=== PATIENT | female | born 1945 | race African-American/Black ===

== ENCOUNTER 2019-04-15 08:01 | Outpatient (CLI) | payer OTHER ==
[~2019-04-15 08:01] MED LIST: LISINOPRIL5 MG
== END 2019-04-15 08:05 | disposition home or self-care (01) ==
LOC: SONOGRAMA 08:01
DX: E04.2 Nontoxic multinodular goiter (principal)

== ENCOUNTER 2022-10-10 19:19 | Inpatient (IN) | payer OTHER ==
[~2022-10-10] VITALS: Ht 160 cm; Wt 104.3 kg
[~2022-10-10 19:19] MED LIST changes: +CELEBREX200MG PO; +DICLOFENAC SOD100 MG PO; +FOSAMAX70 MG PO; +ZANAFLEX2 MG PO
[2022-10-10] MEDS ORDERED: LEVOTHYROXINE25 MCG (20:17)
[2022-10-13] MEDS ORDERED: PANTOPRAZOLE SO40 MG PO (14:33)
[2022-10-13] MEDS ORDERED: LEVSIN/SL0.125 MG SL (14:39)
== END 2022-10-13 15:04 | disposition home or self-care (01) | DRG 343 ==
LOC: ER 19:19 → MEDJ 10-11 00:56
PROVIDERS: Surgery; ADMIT Internal Medicine; ATTEND Internal Medicine
PROC: 0WQF4ZZ Repair Abdominal Wall, Percutaneous Endoscopic Approach (ICD-10-PCS; 2022-10-11)
PROC: BW21ZZZ Computerized Tomography (CT Scan) of Abdomen and Pelvis (ICD-10-PCS; 2022-10-11)
PROC: 0DTJ4ZZ Resection of Appendix, Percutaneous Endoscopic Approach (ICD-10-PCS; principal; 2022-10-11 10:00)
DX: K35.890 Other acute appendicitis without perforation or gangrene (principal); K43.9 Ventral hernia without obstruction or gangrene; Z20.822 Contact with and (suspected) exposure to COVID-19

== ENCOUNTER 2023-03-24 09:44 | Emergency (ER) | payer OTHER ==
[~2023-03-24] VITALS: Ht 157.5 cm; Wt 85.7 kg
[~2023-03-24 09:44] MED LIST changes: +LEVOTHYROXINE25 MCG; +LEVSIN/SL0.125 MG SL; +PANTOPRAZOLE SO40 MG PO
== END 2023-03-24 11:31 | disposition home or self-care (01) ==
LOC: ER 09:44
DX: R07.89 Other chest pain (principal); W18.39XA Other fall on same level, initial encounter; Y93.89 Activity, other specified; Y92.013 Bedroom of single-family (private) house as the place of occurrence of the external cause

== ENCOUNTER 2023-04-17 09:04 | Outpatient (CLI) | payer OTHER | END 2023-04-17 09:06 | disposition home or self-care (01) | LOC: SONOGRAMA 09:04 | PROVIDERS: ATTEND Pathology Anatomic Pathology & Clinical Pathology | DX: D34 Benign neoplasm of thyroid gland (principal); D44.0 Neoplasm of uncertain behavior of thyroid gland; E07.9 Disorder of thyroid, unspecified; E04.9 Nontoxic goiter, unspecified ==

== ENCOUNTER 2024-01-29 01:38 | Emergency (ER) | payer OTHER ==
[~2024-01-29] VITALS: Ht 157.5 cm; Wt 82.6 kg
[2024-01-29] MEDS ORDERED: NORVASC5 MG PO (01:43)
[2024-01-29] MEDS ORDERED: KETOROLAC TROMETHAMINE 60 MG VIAL IM STA (05:41)
[2024-01-29] MEDS ORDERED: ORPHENADRINE CITRATE 30 MG/ML AMPUL IM STA (05:41)
[2024-01-29] MEDS ORDERED: NORFLEX100MG PO (06:58)
[2024-01-29] MEDS ORDERED: MELOXICAM15 MG PO (06:58)
== END 2024-01-29 07:19 ==
LOC: ER 01:38
DX: M54.9 Dorsalgia, unspecified (principal); I10 Essential (primary) hypertension
CPT/HCPCS: 72070; 96372; 99283; J1885; J2360

== ENCOUNTER 2025-03-06 20:03 | Emergency (ER) | payer OTHER ==
[~2025-03-06] VITALS: Ht 160 cm; Wt 83.9 kg
[~2025-03-06 20:03] MED LIST changes: +MELOXICAM15 MG PO; +NORFLEX100MG PO; +NORVASC5 MG PO
[2025-03-06] MEDS ORDERED: ZESTRIL40 M1 (20:33)
[2025-03-06] MEDS ORDERED: LIDOCAINE HCL 1% 10ML VIAL IJ ONE (21:00)
[2025-03-06] MEDS ORDERED: CEFTRIAXONE SODIUM 1,000 MG VIAL IM ONE (21:00)
[2025-03-06] MEDS ORDERED: KETOROLAC TROMETHAMINE 60 MG VIAL IM ONE ×2 (21:00→21:11)
[2025-03-06] MEDS ORDERED: CEFTRIAXONE SODIUM 1,000 MG VIAL ONE (21:11)
[2025-03-06] MEDS ORDERED: AMOX1TAB5 PO (21:27)
[2025-03-06] MEDS ORDERED: PEPCID AC20 MG PO (21:27)
== END 2025-03-06 22:04 | disposition home or self-care (01) ==
LOC: ER 20:03
DX: L02.212 Cutaneous abscess of back [any part, except buttock and flank] (principal); I10 Essential (primary) hypertension; E03.9 Hypothyroidism, unspecified